=== PATIENT | female | born 1990 | race Caucasian/White ===

== ENCOUNTER 2023-09-29 14:01 | Outpatient (CLI) | payer OTHER, SELFPAY ==
--- NOTE | ~2023-09-29 | MR_ITS ---
MRI of the brain Clinical History: Migraine Technique: Axial and sagittal T1-weighted images were acquired. These were followed by axial T2-weigh linette, diffusion weighted, gradient, and FLAIR images. Findings: No signal abnormality seen in the brain parenchyma. No acute infarct, intracranial hemorrha ge, or mass lesion. Ventricles and subarachnoid spaces are unremarkable. Orbits are unremarkable. Paranasal sinuses and m astoid air cells are clear. Major intracranial flow voids are grossly intact. Sagittal midline structures are intact. IMPRESSION: No significant abnormality seen. Reviewed, dictated and finalized at location M.
== END 2023-09-29 14:02 ==
LOC: MICIMG 14:04
PROVIDERS: PCP Family Medicine; Visit Provider Family Medicine
DX: G43.909 Migraine, unspecified, not intractable, without status migrainosus (principal)
CPT/HCPCS: 70551